=== PATIENT | male | born 1955 | race Caucasian/White ===

== ENCOUNTER → 2023-07-21 13:00 | Outpatient (REF) | payer OTHER, SELFPAY | LOC: RAD 13:00 | PROVIDERS: ATTENDING PHYSICIAN Physician Assistant; FAMILY PHYSICIAN Family Medicine | DX: R06.02 Shortness of breath (principal); R05.1 Acute cough; M31.6 Other giant cell arteritis | CPT/HCPCS: 71275; Q9967 ==

== ENCOUNTER → 2023-08-05 11:25 | Outpatient (REF) | payer OTHER, SELFPAY | LOC: RAD 11:25 | PROVIDERS: ATTENDING PHYSICIAN Internal Medicine Rheumatology; FAMILY PHYSICIAN Family Medicine | DX: M31.6 Other giant cell arteritis (principal) | CPT/HCPCS: 71046 ==

== ENCOUNTER → 2023-09-02 07:19 | Outpatient (REF) | payer OTHER, MEDICARE, SELFPAY | LOC: RAD 07:19 | PROVIDERS: ATTENDING PHYSICIAN Internal Medicine Rheumatology; FAMILY PHYSICIAN Family Medicine | DX: M31.6 Other giant cell arteritis (principal); M81.0 Age-related osteoporosis without current pathological fracture | CPT/HCPCS: 77080 ==

== ENCOUNTER → 2023-10-28 06:54 | Outpatient (REF) | payer OTHER, MEDICARE, SELFPAY | LOC: RAD 06:54 | PROVIDERS: ATTENDING PHYSICIAN Internal Medicine Rheumatology; FAMILY PHYSICIAN Family Medicine | DX: M31.6 Other giant cell arteritis (principal); R05.1 Acute cough; R06.2 Wheezing | CPT/HCPCS: 71250 ==